=== PATIENT | male | born 1975 | race Caucasian/White ===

== ENCOUNTER 2017-06-17 09:44 | Day surgery (SDC) | payer OTHER ==
[~2017-06-17] VITALS: Ht 188 cm; Wt 129.6 kg
[2017-06-17 11:41] VITALS: BP 141/91; PULSE 78; TEMP 98
[2017-06-17] MEDS ORDERED: BUSPAR5 MG PO (11:45)
[2017-06-17] MEDS ORDERED: LEXAPRO20 MG PO (11:46)
[2017-06-17] MEDS ORDERED: XANAX .25M0.25 MG/TA PO (11:49)
[2017-06-17] MEDS ORDERED: NORCO 325 MG-7.1 TAB PO (13:51)
[2017-06-17 14:35] VITALS: BP 99/62; PULSE 83; TEMP 98.2
[2017-06-17 14:50] VITALS: BP 128/97; PULSE 84
[2017-06-17 15:05] VITALS: BP 104/63; PULSE 86
[2017-06-17 15:20] VITALS: BP 108/57; PULSE 77
[2017-06-17 15:35] VITALS: BP 107/58; PULSE 78
== END 2017-06-17 15:45 | disposition home or self-care (01) ==
LOC: SDCO 09:44
DX: K80.10 Calculus of gallbladder with chronic cholecystitis without obstruction (principal); I10 Essential (primary) hypertension; F32.9 Major depressive disorder, single episode, unspecified; F41.9 Anxiety disorder, unspecified; K21.9 Gastro-esophageal reflux disease without esophagitis; Z98.1 Arthrodesis status; F17.210 Nicotine dependence, cigarettes, uncomplicated
CPT/HCPCS: J0690; J1100; J1170; J2250; J2405; J2704; J3010; J7120

== ENCOUNTER 2024-03-04 10:33 | Inpatient (IN) | payer SELFPAY ==
[~2024-03-04] VITALS: Ht 188 cm; Wt 111.3 kg
[~2024-03-04 10:33] MED LIST: ASPIRIN 32325 MG/TAB PO; BUSPAR10 MG PO; BUSPAR5 MG PO; CYMBALTA 60MG60 MG PO; FLEXERIL 1010 MG/TAB PO; KLONOPIN 1MG1 MG PO; LEXAPRO20 MG PO; MINIPRESS2 MG PO; MIRALAX PA17 GM/Dose NG; NEURONTIN400 MG/CAP PO; NORCO 325 MG-7.1 TAB PO; PLAVIX 75MG TAB75 MG PO; ROXICODONE 55 MG/TAB PO; SENNA-S 50 MG-81 TAB PO; TYLENOL 500MG500 MG PO; ULTRAM 50MG TAB50 MG PO; XANAX .25M0.25 MG/TA PO
[2024-03-04 10:59] VITALS: BP 151/97; PULSE 78; TEMP 97.7
[2024-03-04] MEDS ORDERED: Polyethylene Glycol 3350 17 GM PDS PO PRN (11:00)
[2024-03-04] MEDS ORDERED: oxyCODONE 5 MG TAB PO PRN ×2 (11:00→12:00)
[2024-03-04] MEDS ORDERED: Docusate Sodium 100 MG CAP PO PRN (11:00)
[2024-03-04] MEDS ORDERED: Acetaminophen 325 MG TAB PO PRN (11:00)
[2024-03-04] MEDS ORDERED: Naloxone 0.4 MG/ML VIAL IV PRN ×2 (11:00→16:30)
[2024-03-04] MEDS ORDERED: Sennosides/Docusate 8.6-50 MG TAB PO PRN (11:00)
--- NOTE | 2024-03-04 11:11 | NUR ---
PT ARRIVED TO UNIT VIA STRETCHER, ABLE TO PIVOT TRANSFER WITH MINIMAL SBA. REPORTS PAIN 9/10 IN NECK, GIVEN PAIN MED WHOLE IN APPLESAUCE WITHOUT DIFFICULTY. PT ALERT, VERBAL, COOPERATIVE. PT IN BED, HOB ELEVATED, CALL LT IN LAP. OT AT BEDSIDE
[2024-03-04] MEDS ORDERED: clonazePAM 1 MG TAB PO PRN (12:00)
[2024-03-04] MEDS ORDERED: Acetaminophen 500 MG TAB PO SCH (12:00)
[2024-03-04] MEDS ORDERED: oxyCODONE 5 MG TAB PO ONE (12:15)
--- NOTE | 2024-03-04 12:50 | NUR ---
PT ATE 80 PERCENT OF LUNCH, FED BY STAFF. NO CHOKING NOTED BUT PT C/O DIFFICULTY SWALLOWING DRY FOODS.
[2024-03-04] MEDS ORDERED: Gabapentin 300 MG CAP PO SCH (14:00)
[2024-03-04] MEDS ORDERED: Cyclobenzaprine 10 MG TAB PO SCH (14:00)
[2024-03-04] MEDS ORDERED: busPIRone 5 MG TAB PO SCH (14:00)
--- NOTE | 2024-03-04 14:42 | NUR ---
PT WORKED WITH PT AND OT, COOPERATIVE. GIVEN SCHEDULED MEDICATION, SWALLOWS WITH PUDDING WITHOUT COUGHING, REPORTS TOOK PILLS WITH LIQUID AT PREVIOUS HOSPITAL. SPEECH CONSULT PLANNED FOR 03/05. PT DENIES NEEDS, S.O. AT BEDSIDE.
--- NOTE | 2024-03-04 16:05 | NUR ---
glass processing worker and Student, Tanya, met with patient to discuss discharge planning. Patient lives in [place] with his , Nuha, P# [phone]. PCP is Dr. Donaldson, Pharmacy is [facility]. Patient does not currently have insurance. Patient reports no issues with affording medications at this time. No DPOA-HC but would be interested in completing one. No DME at this time. Patient reported being independent with ADLS prior to hospitalization. No stairs in patient's home but approximately three steps into the home. Patient may not be able to drive at the time of discharge and reports his is able to transport him to and from appointments. Patient would like to return home at time of discharge. SW spoke with patient's nurse whom reported patient's received the financial assistance application when she was here and took it home to assist patient with completing the form. DIscharge plan: Home
[2024-03-04 17:00] VITALS: BP 112/76; PULSE 93; TEMP 97.5
[2024-03-04 18:30] VITALS: BP_SYST 112
[2024-03-04 19:00] VITALS: BP_SYST 112
--- NOTE | 2024-03-04 19:00 | NUR ---
RECEIVED CHANGE OF SHIFT REPORT FROM DAY SHIFT NURSE. PATIENT RESTING IN BED, NO NEEDS REPORTED AT THIS TIME.
[2024-03-04] MEDS ORDERED: Sennosides/Docusate 8.6-50 MG TAB PO SCH (21:00)
[2024-03-04] MEDS ORDERED: Prazosin 1 MG CAP PO SCH (21:00)
--- NOTE | 2024-03-05 01:40 | NUR ---
PATIENT RESTING WITH EYES CLOSED IN BED, BREATHING EVEN/NONLABORED. DOES NOT WAKE DURING NURSE ROUNDING AT THIS TIME. EXIT ALARM ON.
[2024-03-05 05:41] VITALS: BP 107/75; PULSE 85; TEMP 97.4
--- NOTE | 2024-03-05 06:01 | NUR ---
Patient complains of neck pain, 05/01, see MAR for pain medications given. Resting in bed, exit alarm on.
--- NOTE | 2024-03-05 06:34 | NUR ---
Change of shift report given to day shift nurseKevan.
[2024-03-05 06:40] VITALS: BP_SYST 107
--- NOTE | 2024-03-05 08:10 | NUR ---
Pt. sitting up in bed. Pt. is A&OX3, assessment complete. Pt. reports pain at a 7 on pain scale, giving additional dose of oxycodone at this time per orders. Pt. denies further needs, call light within reach.
[2024-03-05] MEDS ORDERED: Clopidogrel 75 MG TAB PO SCH (09:00)
[2024-03-05] MEDS ORDERED: Polyethylene Glycol 3350 17 GM PDS PO SCH (09:00)
[2024-03-05] MEDS ORDERED: DULoxetine 60 MG CAP PO SCH (09:00)
[2024-03-05] MEDS ORDERED: Aspirin 325 MG TAB PO SCH (09:00)
--- NOTE | 2024-03-05 09:26 | NUR ---
Initial visit attempt; Patient out of room, Mail Processor left card offering Spiritual Care and God's blessings along with an explanation of what all is involved in Spiritual Care.
[2024-03-05] MEDS ORDERED: Gabapentin 400 MG CAP PO SCH (14:00)
--- NOTE | 2024-03-05 14:10 | NUR ---
Microbiology Technician and student, Tanya met with patient to follow up on DPOA-HC. Patient stated he would prefer to wait until his , Nuha visits this weekend. SW left the paperwork and will continue to follow up.
[2024-03-05 17:03] VITALS: BP 109/76; PULSE 79; TEMP 98.1
[2024-03-05 18:19] VITALS: BP_SYST 109
--- NOTE | 2024-03-05 18:54 | NUR ---
RECEIVED CHANGE OF SHIFT REPORT FROM DAY SHIFT NURSE.
--- NOTE | 2024-03-05 20:00 | NUR ---
DENIES CHEST PAIN/SHORTNESS OF BREATHE, NAUSEA AT THIS TIME. OBSERVED DECREASED RANGE OF MOTION AND STRENGTH TO RIGHT ARM AND DECREASED ROM TO LEFT SHOULDER AND WEAKNESS TO LEFT ARM. PATIENT RESTING IN BED AT THIS TIME, BREATHING EVEN AND NONLABORED. NO REPORTS OF DISCOMFORT OR NEEDS AT THIS TIME. EXIT ALARM ON, CALL LIGHT IN PATIENT'S REACH.
[2024-03-05] MEDS ORDERED: clonazePAM 1 MG TAB PO SCH (21:00)
--- NOTE | 2024-03-05 23:04 | NUR ---
PATIENT REPORTED THAT IF HE IS SLEEPING WHEN MIDNIGHT DOSE OF TYLENOL IS DUE, PATIENT DOES NOT WANT TO BE WAKENED FOR THAT MEDICATION.
--- NOTE | 2024-03-06 05:37 | NUR ---
Denies any other needs after administration of scheduled Tylenol. Verbalized that he wants to wait to take Oxycodone with rest of morning scheduled medications at this time. Reminded patient to letting nursing know if he changes his mind and wants narcotic sooner that 0900. Exit alarm on, call light in reach.
[2024-03-06 05:58] VITALS: BP 110/76; PULSE 79; TEMP 97.6
[2024-03-06 06:08] VITALS: BP_SYST 110
--- NOTE | 2024-03-06 07:17 | NUR ---
Change of shift report given to day shift nurse.
--- NOTE | 2024-03-06 09:17 | NUR ---
PATIENT ALERT AND ORIENTED X4. PATIENT REPORTS PAIN TO HIS NECK. RATING IT AT A 7/10. PATIENT IS WEARING ASPEN COLLAR AT ALL TIMES. PATIENT HAS RIGHT ARM DRESSING C/D/I AND IS UNABLE TO MOVE BOTH ARMS. PATIENT RESTING IN BED WATCHING TV. ON ROOM AIR.SHIFT ASSESSMENT COMPLETED. CALL LIGHT WITHIN REACH. TOUCH PAD CALL LIGHT IN PLACE ASWELL. BED AT LOWEST POSITION.BED ALARM ON.
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
[2024-03-06 17:01] VITALS: BP 115/82; PULSE 67; TEMP 98.1
[2024-03-06 17:23] VITALS: BP_SYST 115
--- NOTE | 2024-03-06 18:40 | NUR ---
RECEIVED CHANGE OF SHIFT REPORT FROM DAY SHIFT NURSE. PATIENT RESTING IN BED, EXIT ALARM ON, CALL LIGHT IN REACH.
--- NOTE | 2024-03-06 20:00 | NUR ---
PATIENT CONTINUES WITH DECREASED STRENGTH TO BUE WITH RIGHT WORSE THAN LEFT, ABLE TO WIGGLE THE FINGERS OF BOTH HAND WITH STAFF CONTINUING TO ENCOURAGE PATIENT TO PERFORM WIGGLING OF FINGER TO HELP WITH SWELLING, HAVING OBSERVED THAT SWELLING TO RIGHT HAND FINGERS ARE LESS COMPARED TO YESTERDAY'S OBSERVATION BY NURSING. STORE ASSOCIATE TO FINGERS OF BOTH HANDS <3 SEC WITH SKIN WARM AND DRY WITH NORMAL SKILL COLORING. PATIENT KEEPING BUE UP ON PILLOWS INSTRUCTED AND FOR COMFORT. EXIT ALARM ON WHILE RESTING IN BED WITH SENSITIVE TOUCH CALL LIGHT WITHIN PATIENT'S REACH. PATIENT DENIES ANY NEEDS AT THIS TIME.
--- NOTE | 2024-03-06 21:00 | NUR ---
PATIENT REQUESTED TO NOT BE DISTURBED IF ASLEEP FOR MIDNIGHT TYLENOL DOSE.
--- NOTE | 2024-03-07 01:27 | NUR ---
Requested and given pain medication for complaint of 8 neck pain, see MAR.
[2024-03-07 06:00] VITALS: BP 113/79; PULSE 83; TEMP 97.6
--- NOTE | 2024-03-07 06:48 | NUR ---
Change of shift report given to day shift nurseJulio César. Patient resting with eyes closed with even/nonlabored breathing observed. Patient did not wake when nursing entered room during report. Exit alarm on, soft touch pad for call light in patient's reach.
[2024-03-07 06:49] VITALS: BP_SYST 113
--- NOTE | 2024-03-07 08:33 | NUR ---
PT RESTING IN BED, ALERT AND ORIENTEDX4. RATES PAIN 8/10 IN THE RIGHT ARM AND NECK. GAVE PAIN PILL. PT IS ABLE TO MOVE FINGERS ON BOTH EXTREMITIES. NOT ABLE TO MOVE RIGHT ARM. ABLE TO SAND CUTTING MACHINE OPERATOR LEFT ARM A LITTLE. NO FINE MOTOR SKILLS. STARTING FEEDING PT. PCT FINISHED FEEDING PT. NO OTHER COMPLAINTS AT THIS TIME. CALL LIGHT WITHIN REACH.
--- NOTE | 2024-03-07 09:16 | NUR ---
PT HAS BLOOD ALL OVER THE FRONT OF BRIEF COMING FROM [facility]. CALLED DR SMITH TO LET HIM KNOW. GOT ORDERS FOR UA AND BLADDER SCAN.
--- NOTE | 2024-03-07 09:23 | NUR ---
BLADDER SCANNED AT 0900.0 ML IN BLADDER
[2024-03-07 15:01] LABS: COLLECTION METHOD CLEAN CATCH
[2024-03-07 16:05] LABS: PH 5.5 (5.0-8.5); URINE APPEARANCE Clear (CLEAR/HAZY); URINE BLOOD NEGATIVE (NEGATIVE); URINE COLOR YELLOW (YELLOW); URINE GLUCOSE NEGATIVE (NEGATIVE); URINE KETONE NEGATIVE (NEGATIVE); URINE NITRATE NEGATIVE (NEGATIVE); URINE PROTEIN(semi-quant) NEGATIVE (NEGATIVE); URINE UROBILINOGEN 0.2 E.U/dL (0.2-1.0)
[2024-03-07 16:59] VITALS: BP 127/80; PULSE 80; TEMP 98.2
[2024-03-07 18:59] VITALS: BP_SYST 127
--- NOTE | 2024-03-07 18:59 | NUR ---
RECEIVED CHANGE OF SHIFT REPORT FROM DAY SHIFT NURSE. PATIENT RESTING IN BED, EXIT ALARM ON, SENSITIVE TOUCH CALL LIGHT PAD NEXT TO PATIENT'S LEFT HAND ON HIS CHEST. PATIENT DENIES ANY NEEDS OR CONCERNS AT THIS TIME.
--- NOTE | 2024-03-07 19:25 | NUR ---
Informed oncall provider of UA results, orders given to PO Keflex 500 mg BID.
[2024-03-07] MEDS ORDERED: Cephalexin 500 MG CAP PO SCH (19:30)
--- NOTE | 2024-03-07 19:48 | NUR ---
PATIENT SET OFF BED EXIT ALARM WHILE GETTING UP TO GO TO THE BATHROOM. PATIENT BACK TO BED WITH SLIGHT LEFT LEG DRAG WITH AMBULATION. DENIES CHEST PAIN, SHORTNESS OF BREATH, NAUSEA AT THIS TIME. DENIES ANY PROBLEMS WITH VOIDING OR URGENCY AT THIS TIME. EXIT ALARM ON, PATIENT REMINDED TO USE CALL LIGHT BEFORE GETTING UP TO USE BATHROOM WITH PATIENT VERBALIZING "YES". CALL LIGHT PLACED NEXT TO PATIENT BY PATIENT.
--- NOTE | 2024-03-07 20:35 | NUR ---
DECREASED MOVEMENT OF RIGHT ARM DUE TO SPLINT [place] DRESSING BUT ABLE TO WIGGLE RIGHT HAND FINGERS WITH NO PROBLEMS. OBSERVED BRACE TO LEFT WRIST FOR SUPPORT WITH PATIENT ABLE TO WIGGLE LEFT HAND FINGERS ON COMMAND WITH REPORT EQUAL SENSATION TO TOUCH. 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 OBSERVED BLE STRENGTH EQUAL TO LEGS WITH PATIENT REPORTING THAT HIS GAIT IS NOT STEADY THE DAY PROGRESS AND WHEN HE IS TIRED. DENIES CHEST PAIN/SHORTNESS OF BREATHE/NAUSEA AT THIS TIME. DENIES PROBLEMS WITH URINATION. REQUESTING PAIN MEDICATION WHEN NEXT AVAILABLE. PATIENT RESTING IN BED WITH EXIT ALARM ON, TOUCH PAD FOR CALL LIGHT ON CHEST NEXT TO LEFT HAND.
--- NOTE | 2024-03-07 20:59 | NUR ---
See MAR for pain medication given at this time as requested by patient. Patient denies any further needs/complaints at this time.
--- NOTE | 2024-03-07 22:36 | NUR ---
ONCALL PROVIDER ORDER GIVEN TO CULTURE URINE IF STILL AVAILABLE IN LAB, CONTACTED LAB AND CONFIRMED SPECIMEN IS STILL AVAILABLE FOR CULTURE, ORDER ENTERED BY CRITICAL CARE CNS.
[2024-03-08 06:05] VITALS: BP 108/74; PULSE 79; TEMP 97.3
[2024-03-08 07:00] VITALS: BP_SYST 108
--- NOTE | 2024-03-08 07:01 | NUR ---
Change of shift report given to day shift nurseMukund. Patient resting in bed, exit alarm on, touch pad call light next to left hand elevated on pillow. Patient denies any needs at this time.
--- NOTE | 2024-03-08 09:55 | NUR ---
SW met with patient to follow up on discharge planning. Patient states he is not aware of Financial Assist paperwork being completed. He still plans to return home at discharge. SW called R1 and spoke with Farooq who states she will meet with patient today to complete financial assist paperwork. Crane Man Laura informed this SW that [facility] completed Medicaid application prior to patient's admission to this hospital. Discharge plan: Home
--- NOTE | 2024-03-08 14:52 | NUR ---
Admission QIM scores were reviewed by the team. Code of 1 chosen for eating was determined by team discussion to be the most usual performance before interventions for this patient during the assessment period. Code of 1 chosen for toileting hygiene was determined by team discussion to be the most usual performance for this patient during the discharge assessment period. Code of 3 chosen for toilet transfers was determined by team discussion to be the most usual performance for this patient during the discharge assessment period. Code of 3 chosen for sit to lying was determined by team discussion to be the most usual performance before interventions for this patient during the assessment period. Code of 3 chosen for lying to sitting side of bed was determined by team discussion to be the most usual performance before interventions for this patient during the assessment period. Code of 3 chosen for chair to bed was determined by team discussion to be the most usual performance for this patient during the discharge assessment period. Code of 3 chosen for walking 10 feet was determined by team discussion to be the most usual performance for this patient during the discharge assessment period. Code of 88 chosen for walking 150 feet was determined by team discussion to be the most usual performance before interventions for this patient during the assessment period.--Laura Poon,
[2024-03-08 17:26] VITALS: BP 131/84; PULSE 84; TEMP 97.6
[2024-03-08 19:20] VITALS: BP_SYST 131
[2024-03-08 19:50] VITALS: BP 125/84; PULSE 81; TEMP 98.6
[2024-03-09 05:26] VITALS: BP 118/81; PULSE 84; TEMP 97.8
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
[2024-03-09 07:00] VITALS: BP_SYST 118
--- NOTE | 2024-03-09 07:45 | NUR ---
Pt. sitting up in bed. Pt. is a&OX3, assessment complete. Pt. reports pain at a 4 on pain scale at this time. Pt. assisted with meds. Pt. denies further needs, call light within reach.
--- NOTE | 2024-03-09 14:03 | NUR ---
Initial visit; Patient very nice, stated that he was happy to have Airline Reservation Agent visit and said he is doing "ok". He and Airline Reservation Agent spoke of his cousin with whom he is close and she was a school friend of our daughter. Alexander said he would let the nurse know if he wanted to visit again.
[2024-03-09 17:15] VITALS: BP 149/97; PULSE 82; TEMP 97.4
[2024-03-09 19:00] VITALS: BP_SYST 149
--- NOTE | 2024-03-09 23:09 | NUR ---
NURSING SHIFT ASSESSMENT COMPLETED. THE PATIENT WAS ALERT AND ORIENTED. THE PLAN OF CARE AND PAIN MANAGEMENT WERE REVIEWED. QUESTIONS ANSWERED. THE PATIENT REPORTED HIS NECK PAIN 8/10. TYLENOL TO BE PROVIDED IT IS NOT TIME FOR HIS NEXT DOSE OF OXYCODONE. THE PATIENT WAS ASSISTED WITH THE URINAL AND HE VOIDED WITHOUT DIFFICULTY. C-COLLAR ON PER ORDERS. CALL LIGHT AND PERSONAL BELONGINGS TO INCLUDE THE PAN[place]KE CALL LIGHT ALL WITHIN REACH. THE BED ALARM IS ON AND THE BED IS IN THE LOW POSITION.
--- NOTE | 2024-03-10 05:44 | NUR ---
THE PATIENT RESTED WELL OVER NIGHT. PAIN WAS CONTROLLED WITH TYLENOL AND OXYCODONE.
[2024-03-10 06:07] VITALS: BP 100/69; PULSE 73; TEMP 97.4
[2024-03-10 07:18] VITALS: BP_SYST 100
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
[2024-03-10] MEDS ORDERED: Baclofen 10 MG TAB PO SCH (10:30)
[2024-03-10] MEDS ORDERED: Lidocaine 4% Topical Patch TP SCH (13:00)
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
[2024-03-10 17:51] VITALS: BP 122/88; PULSE 93; TEMP 98
[2024-03-10 19:00] VITALS: BP_SYST 122
--- NOTE | 2024-03-10 19:00 | NUR ---
Received change of shift report from day shift nurse. Patient resting in bed, exit alarm on, call light touch pad next to left hand. Patient denies any needs or concerns at this time.
--- NOTE | 2024-03-10 23:29 | NUR ---
Patient up to bathroom, with x1 CGA assist, patient awakened from sleeping, gait awkward to and from bed to bathroom. Bed exit alarm when back in bed, call light touch pad next to left hand. Chacorta upper extremities elevated on pillows. Denies any needs or concerns at this time. Cat[place] collar in place, to stay on continues as per DO. Splint simon drsg in place to RUE with wrist brace to LUE as per DO for comfort/support.
[2024-03-11 05:58] VITALS: BP 116/77; PULSE 79; TEMP 97.9
[2024-03-11 07:00] VITALS: BP_SYST 116
--- NOTE | 2024-03-11 07:29 | NUR ---
Change of shift report given to day shift nurseAnne Marie.
--- NOTE | 2024-03-11 09:24 | NUR ---
PT RESTING IN BED WAITING FOR THERAPY. TOOK PILLS WHOLE WITH ASSIST. DRANK ONE CUP OF OJ. REFUSED REST OF BREAKFAST. DENIES NEEDS. SLEEPY THIS AM.
[2024-03-11] MEDS ORDERED: Baclofen 10 MG TAB PO SCH (14:00)
[2024-03-11 17:51] VITALS: BP 142/94; PULSE 84; TEMP 97.5
[2024-03-11 19:37] VITALS: BP_SYST 142
--- NOTE | 2024-03-11 19:38 | NUR ---
RECEIVED CHANGE OF SHIFT REPORT FROM DAY SHIFT NURSE. PATIENT RESTING IN BED, EYES CLOSED, DOES NOT WAKE DURING NURSE ROUNDS. OBSERVED BREATHING EVEN/NONLABORED. EXIT ALARM ON, CALL LIGHT TOUCH PAD NEAR L HAND. BOTH BUE ELEVATED FOR COMFORT. ASPEN COLLAR IN PLACE, RUE SPLINT/[place] DRSG CDI.
--- NOTE | 2024-03-11 21:20 | NUR ---
Decreased ROM/strength to right wrist due to splint simon dressing in place, encouraged patient to perform chacorta finger exercises often when awake with patient voicing that he has been observed swelling to right hand fingers decreased from last evenings assessment. Left wrist brace in place for support. Continues to have partial ROM to left shoulder, is able to pull up waist band with left hand partially, not able to move RUE spontaneously. Right hand cylinder machine operator pulp drier very weakn compared to left hand cylinder machine operator pulp drier. Chacorta leg strengths equal. Patient states he still fatigues with activity. Denies chest pain/shortness of breathe/nausea at this time. Reported passing x2 bowel movements with flatus with no problems. Reports no problems with voiding.
--- NOTE | 2024-03-12 02:48 | NUR ---
Patient continues to rest with eyes closed/breathing nonlabored and even. Exit alarm on with call light touch pad next to left hand thumb.
[2024-03-12 05:27] VITALS: BP 125/80; PULSE 82; TEMP 97.4
[2024-03-12 07:00] VITALS: BP_SYST 125
--- NOTE | 2024-03-12 07:00 | NUR ---
PT RESTING IN BED. PT IS ON RA. PT IS A HIGH FALL RISK. PT HAS BEDALRM ACTIVE. FALL PRECAUTIONS IN PLACE. PT HAS CALL LIGHT AND INSTRUCTED TO CALL WTIH ALL NEEDS.
--- NOTE | 2024-03-12 07:20 | NUR ---
Change of shift report given to day shift nurse
[2024-03-12] MEDS ORDERED: Gabapentin 300 MG CAP PO SCH (14:00)
--- NOTE | 2024-03-12 14:26 | NUR ---
rice field worker met with pt to assess for any needs and check-in. Pt had no concerns, but wondered about the family meeting and what this entails. SW provided additional information. Pt would like his to come and staff might have to call his mother, as she babysits. SW advised she will pass this along to main SW. Pt had no further concerns. Discharge Plan: re-eval
[2024-03-12 17:04] VITALS: BP 123/86; PULSE 78; TEMP 97.5
[2024-03-12 19:30] VITALS: BP_SYST 123
--- NOTE | 2024-03-12 21:50 | NUR ---
patient lying in bed, alert and oriented x4. denies chest pain and shortness of breath. aspen collar in place, brace to right radial and small brace to left arm noted. lidocaines patch removed, voltaren gel placed on left arm, shoulder, and elbow for pain relief. nutrition provided with assist. pain rated 8/10 in left arm/shoulder, per request dante given, upon reassement pt resting with eyes closed. pt has no further needs, questions or concerns at this time. fall precautions in place, call light within reach. will continue to monitor.
[2024-03-13 05:31] VITALS: BP 112/80; PULSE 81; TEMP 98.7
[2024-03-13 07:00] VITALS: BP_SYST 112
[2024-03-13 16:32] VITALS: BP 121/83; PULSE 85; TEMP 97.6
[2024-03-13 21:35] VITALS: BP_SYST 121
--- NOTE | 2024-03-13 21:43 | NUR ---
patient lying in bed, alert and oriented x4. denies chest pain and shortness of breath. reports pain in left arm and shoulder rated 7/10, repositioned. aspen splint remains on neck, brace on left wrist and gauze with simon wrap brace on right arm, cdi. pt has no further needs, questions, or concerns at this time. fall precautions in place, call light within reach, will continue to monitor.
[2024-03-14 05:33] VITALS: BP 126/81; PULSE 71; TEMP 98.7
[2024-03-14 07:00] VITALS: BP_SYST 126
[2024-03-14 16:29] VITALS: BP 129/84; PULSE 82; TEMP 98.1
[2024-03-14 19:00] VITALS: BP_SYST 129
--- NOTE | 2024-03-14 21:00 | NUR ---
UPON SHIFT ASSESSMENT, LISETTE WAS IN BED AWAKE AND AXO X4. COLOR AND SENSATION GOOD IN DISTAL EXTREMETIES. NECK SURGICAL SITE CDI. LEFT ARM CAST/DRESSING ALSO CDI. ASPEN COLLAR IN PLACE AND RT ARM WRIST WRAP PRESENT. LUNG SOUNDS CLEAR. PATIENT C/O 9/10 SHOULDER PAIN AND REQUESTING ROXICODONE WITH MED PASS. AMBULTED TO BATHROOM AND HAD LRG BROWN SOLID STOOL. VS ARE WNL.BED ALARM ON, CALL LIGHT WITHIN REACH.
[2024-03-15 05:22] VITALS: BP 127/85; PULSE 79; TEMP 97.6
[2024-03-15 06:56] VITALS: BP_SYST 127
--- NOTE | 2024-03-15 08:26 | NUR ---
PT RESTING IN BED, ALERT AND ORIENTEDX4. RATES PAIN 8/10 IN THE RIGHT ARM AND KNECK. ASSESSED AND GAVE MORNING MEDS. TOOK PT TO THE BATHROOM. NO OTHER COMPLAINTS AT THIS TIME. CALL LIGHT WITHIN REACH.
--- NOTE | 2024-03-15 15:26 | NUR ---
SW attempted to meet with patient to check in after weekend. Patient sleeping soundly, no family present. SW spoke with RN who reports no issues at this time. SW will meet with patient at a later time. Discharge plan: re-eval
[2024-03-15 17:03] VITALS: BP 135/87; PULSE 88; TEMP 98.4
[2024-03-15 19:23] VITALS: BP_SYST 135
--- NOTE | 2024-03-15 19:24 | NUR ---
RECEIVED CHANGE OF SHIFT REPORT FROM DAY SHIFT NURSE. PATIENT RESTING IN BED WITH EYES CLOSED, EVEN AND NONLABORED BREATHING OBSERVED. DOES NOT WAKE DURING NURSE ROUNDING AT THIS TIME. EXIT ALARM ON, CALL LIGHT IN REACH.
--- NOTE | 2024-03-15 20:00 | NUR ---
DECREASED ROM TO RUE RELATED TO SPLINT [place] DRSG AND WEAKNESS. DECREASED ROM TO RIGHT SHOULDER RELATED TO WEAKNESS. PATIENT REPORTS DECREASED SENSATION TO RUE WITH WEAK HAND PRESS OPERATOR HEAVY DUTY MORE THAT LEFT. PATIENT WITH SLIGHT UNSTEADY GAIT WHEN AMBULATED TO BATHROOM AFTER WAKING FROM SLEEPING THIS EVENING. SPEAKS CLEARLY AND APPROPRIATELY. DENIES CHEST PAIN/SHORTNESS OF BREATHE/ NAUSEA AT THIS TIME. EXIT ALARM ON WHILE RESTING IN BED, CALL LIGHT TOUCH PAD PLACED NEXT TO LEFT HAND. ASPEN COLLAR IN PLACE PER D.O. WITH HOB ELEVATED FOR BREATHING COMFORT. CONTINUES ON ROOM AIR. SWALLOWS LIQUIDS WITH NO REPORTED PROBLEMS.
[2024-03-16 05:06] VITALS: BP 107/75; PULSE 89; TEMP 96.2
[2024-03-16 06:59] VITALS: BP_SYST 107
--- NOTE | 2024-03-16 07:08 | NUR ---
CHANGE OF SHIFT REPORT GIVEN TO DAY SHIFT NURSEGINA.
--- NOTE | 2024-03-16 08:25 | NUR ---
PT RESTING IN BED, ALERT AND ORIENTEDX4. RATES PAIN 8/10 IN THE LEFT SHOULDER AND REQUESTED PAIN PILL. ASSESSED AND GAVE MORNING MEDS. PUT LIDCAINE PATCH ON LEFT SHOULDER. REPOSISTIONED IN BED. NO OTHER COMPLAINTS AT THIS TIME CALL LIGHT WITHIN REACH.
[2024-03-16] MEDS ORDERED: predniSONE 10 MG TAB PO SCH (12:09)
[2024-03-16] MEDS ORDERED: Gabapentin 400 MG CAP PO SCH (14:00)
[2024-03-16 17:35] VITALS: BP 129/84; PULSE 97; TEMP 98.4
--- NOTE | 2024-03-16 18:46 | NUR ---
RECEIVED CHANGE OF SHIFT REPORT FROM DAY SHIFT NURSE.
[2024-03-16 19:42] VITALS: BP_SYST 129
[2024-03-17 05:07] VITALS: BP 106/73; PULSE 86; TEMP 97.9
--- NOTE | 2024-03-17 06:57 | NUR ---
CHANGE OF SHIFT REPORT GIVEN TO DAY SHIFT NURSEPARVEEN.
[2024-03-17 07:24] VITALS: BP_SYST 106
--- NOTE | 2024-03-17 11:01 | NUR ---
Pt resting in bed with 8/10 pain in right arm and shoulder. Lidocaine patch applied and pain medication provided. Pt 1 assist to bathroom with walker, pt needs assistance feeding, pt states bm yesterday and refused scheduled stool softeners. [place] collar in place, pt a/o x4, no needs at this time, will continue to monitor.
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
[2024-03-17 19:00] VITALS: BP_SYST 109
[2024-03-17 19:04] VITALS: BP 109/77; PULSE 99; TEMP 97.8
--- NOTE | 2024-03-17 19:50 | NUR ---
RECEIVED CHANGE OF SHIFT REPORT FROM DAY SHIFT NURSE. PATIENT RESTING IN BED, EXIT ALARM ON, CALL LIGHT TOUCH PAD NEXT TO LEFT HAND. NO NEEDS REPORTED AT TIME OF REPORT.
--- NOTE | 2024-03-17 20:00 | NUR ---
DECREASED RUE DUE TO WEAKNESS WITH EQUAL SENSATION REPORTED TO TACTILE TOUCH. SPLINT [place] DRESSING CONTINUES TO RUE, PATIENT ENCOURAGED TO PERFORM FREQUENTLY WIGGLING OF FINGERS OF BOTH HANDS FOR STRENGTH AND SWELLING. BRACE TO LEFT WRIST IN PLACE AND INTACT. PATIENT DENIES CHEST PAIN/SHORTNESS OF AIR AND NAUSEA AT THIS TIME. PATIENT REPORTS HAD PASSED STOOL EARLIER TODAY. PATIENT RESTING IN BED, EXIT ALARM ON, CALL LIGHT TOUCH PAD NEXT TO LEFT HAND FOR EASIER ACCESS TO PATIENT.
--- NOTE | 2024-03-17 22:19 | NUR ---
REQUESTED AND GIVEN OXYCODONE FOR COMPLAINTS OF LEFT SHOULDER PAIN 05/01. NO OTHER NEEDS REPORTED AT THIS TIME.
[2024-03-18 06:00] VITALS: BP 127/89; PULSE 74; TEMP 97.4
[2024-03-18 06:38] VITALS: BP_SYST 127
--- NOTE | 2024-03-18 07:29 | NUR ---
CHANGE OF SHIFT REPORT GIVEN TO DAY SHIFT NURSEPARVEEN.
[2024-03-18] MEDS ORDERED: Triamcinolone 40 MG/ML 1 ML VIAL IJP ONE (09:15)
--- NOTE | 2024-03-18 09:58 | NUR ---
Pt resting in bed with pain 10/10 in left shoulder, pain medications provided per emar. Pt requesting steriod shot at this time. Tushar wrap to right arm and brace to left wrist clean and dry. [place] brace in place, 1 assist with walker to bathroom and walking the halls. Will continue to monitor.
[2024-03-18 17:13] VITALS: BP 131/72; PULSE 91; TEMP 98.5
[2024-03-18 19:00] VITALS: BP_SYST 131
--- NOTE | 2024-03-18 22:10 | NUR ---
Patient resting in bed. Assissted patient to bathroom and back to bed. Changed patients clothes. Rates pain at 8/10, prn pain meds given. Needs met. Assessment complete. Call light and persoanlitems in reach. Bed in low position and bed alarm on.
[2024-03-18 22:22] VITALS: BP 126/73; PULSE 70
[2024-03-19 05:38] VITALS: BP 136/82; PULSE 67; TEMP 97.4
[2024-03-19 07:10] VITALS: BP_SYST 136
--- NOTE | 2024-03-19 12:11 | NUR ---
Assessment complete. A/O x4. Medicated with Roxicodone this morning prior to physical therapy. Currently rates pain 0/10. Reports that injection to left shoulder yesterday has improved left shoulder pain-lidocaine patch placed. Unable to lift or hold RUE but is able to wiggle/move fingers- CMS WNL. Tushar splint to RUE, CDI. Left wrist splint removed by Dr. Figueroa earlier today. [place] brace to neck at all times. Fall precautions in place.
--- NOTE | 2024-03-19 13:00 | NUR ---
PCT assisted patient with meal. Roxicodone administered po c/o pain to left shoulder. Scheduled Tylenol also administered.
--- NOTE | 2024-03-19 15:09 | NUR ---
clothing worker met with pt to assess for any needs. He reports no concerns and wants to work on going home soon. SW advised they will have their team meeting Friday and have some better ideas. Discharge Plan: re-eval
[2024-03-19 16:30] VITALS: BP 130/95; PULSE 92; TEMP 97.6
--- NOTE | 2024-03-19 16:31 | NUR ---
Pt sitting up in chair. Reports pain 11/29. Denies needs at this time. Bedside report given to KEN Leal.
--- NOTE | 2024-03-19 16:34 | NUR ---
Received bedside report from KEN Porras. No PCT in room assisting Pt. Call light in reach and chair alarm on.
[2024-03-19 18:50] VITALS: BP_SYST 130
--- NOTE | 2024-03-19 22:05 | NUR ---
Patient resting in bed. Rates pain at 6/10, prn pain meds given. Assissted patient to bathroom and back to bed. Snack provided. Cleaned feet trying to get built up skin off, lotion applied. Assessment complete. Massage provided to left shoulder with voltaren gel. Call light and personal items in reach. Bed in low position and bed alarm on.
[2024-03-19 22:21] VITALS: BP 148/76; PULSE 66
[2024-03-20 05:50] VITALS: BP 138/77; PULSE 60; TEMP 97.5
[2024-03-20 07:16] VITALS: BP_SYST 138
--- NOTE | 2024-03-20 09:00 | NUR ---
Pt resting in bed with pain 6/10 in left shoulder. Lidocaine patch applied. [place] collar in place, right forearm simon wrap CDI, shuffeling gait to bathroom with SBA and gait belt. Bandaid replaced to abdomen from Lovenox injection site from 03/19. Site continues to bleed with pressure. Pt refused morning dose of Lovenox, plan to discuss with hospitalist team today. No needs at this time, will continue to monitor.
[2024-03-20 18:21] VITALS: BP 141/83; PULSE 109; TEMP 98.3
[2024-03-20 18:40] VITALS: BP_SYST 141
--- NOTE | 2024-03-20 19:05 | NUR ---
Patient resting in bed. Rates pain at 6/10, denies need for pain meds at this time and stated he would take some with his evening meds. Snack offered. Denies any needs at this time. Assessment complete. Call light and personal items in reach. Bed in low position.
[2024-03-21 05:54] VITALS: BP 133/79; PULSE 77; TEMP 97.1
[2024-03-21 06:40] VITALS: BP_SYST 133
--- NOTE | 2024-03-21 06:40 | NUR ---
Pt amy carrasco. Call light in reach.
--- NOTE | 2024-03-21 08:20 | NUR ---
Pt sitting up in bed. Assessment complete. Pt states pain 6/10 after oxycodone. Applied Lidocaine patch to shoulder. No further needs at this time. Call light in reach and bed alarm on.
[2024-03-21 17:49] VITALS: BP 114/79; PULSE 77; TEMP 98.5
[2024-03-21 19:16] VITALS: BP_SYST 114
--- NOTE | 2024-03-21 19:17 | NUR ---
RECEIVED CHANGE OF SHIFT REPORT FROM DAY SHIFT NURSE. PATIENT RESTING IN BED, EXIT ALARM ON, CALL LIGHT WITHIN PATIENT'S REACH.
--- NOTE | 2024-03-21 20:00 | NUR ---
PATIENT WITH CONTINUED WEAKNESS TO RUE, ABLE TO WIGGLE RIGHT HAND FINGERS WITH STAFF ENCOURAGED PATIENT TO CONTINUE TO PERFORM RIGHT HAND FINGER WIGGLES TO HELP WITH SWELLING AND ROM. [place] DRESSING TO RIGHT WRIST/FOREARM INTACT AND CLEAN AND ELEVATED ON X2 PILLOWS. PATIENT DENIES CHEST PAIN/SHORTNESS OF BREATHE AT THIS TIME. REQUESTING PAIN MEDS WHEN NEXT AVAILABLE, SEE MAR FOR MEDS GIVEN. EXIT ALARM ON WHILE IN BED WITH CALL LIGHT WITHIN LEFT HAND REACH. PATIENT DENIED ANY OTHER NEEDS AT THIS TIME.
[2024-03-22 05:50] VITALS: BP 134/85; PULSE 97; TEMP 97.4
[2024-03-22 07:00] VITALS: BP_SYST 134
--- NOTE | 2024-03-22 07:20 | NUR ---
CHANGE OF SHIFT REPORT GIVEN TO DAY SHIFT NURSELISA.
--- NOTE | 2024-03-22 08:30 | NUR ---
Pt. sitting up in bed. Pt. is A&OX3, assessment complete. [place] collar to neck. Pt. reports pain to lt. shoulder/arm at a 7. Lidocaine patch applied. Gave pain meds per order. Pt. denies further needs. OT assisting pt. with bath. Pt. denies further needs, call light within reach.
--- NOTE | 2024-03-22 12:24 | NUR ---
plate worker and SW Student met with patient to introduce herself and check in. Patient reports to be doing well. SW provided her contact information to call if he has any questions or concerns. SW explained she would continue to follow up with him.
[2024-03-22 16:30] VITALS: BP 129/88; PULSE 90; TEMP 98.3
[2024-03-22 19:18] VITALS: BP_SYST 129
--- NOTE | 2024-03-22 19:19 | NUR ---
RECEIVED CHANGE OF SHIFT REPORT FROM DAY SHIFT NURSE. PATIENT RESTING IN BED, EXIT ALARM ON, CALL LIGHT WITHIN PATIENT'S REACH.
--- NOTE | 2024-03-22 20:00 | NUR ---
RUE WEAKNESS CONTINUES WITH RIGHT WRIST BRACE IN PLACE. ASPEN COLLAR CONTINUES AND IN PLACE. LUE WITH CONTINUED DECREASED MOVEMENT. PATIENT DENIES CHEST PAIN/SHORTNESS OF BREATHE AND NAUSEA AT THIS TIME.
[2024-03-23 05:18] VITALS: BP 113/76; PULSE 80; TEMP 97.6
--- NOTE | 2024-03-23 06:56 | NUR ---
CHANGE OF SHIFT REPORT GIVEN TO DAY SHIFT NURSE, PIO
[2024-03-23 07:00] VITALS: BP_SYST 113
--- NOTE | 2024-03-23 10:33 | NUR ---
PT AWAKE AND RESTING IN BED UPON ENTERING ROOM. PT C/O DIZZINESS, LIGHTHEADEDNESS, AND SLIGHT NAUSEA DURING OT. VSS. PT REFUSED BREAKFAST BEFORE THERAPY. PT HAD 3 SPOONFULS OF PUDDING AND SX IMPROVED. PT NOW SLEEPING IN ROOM. DENIES OTHER PAIN. BED ALARM ON. CALL LIGHT W/IN REACH.
--- NOTE | 2024-03-23 16:21 | NUR ---
PT SX OF NAUSEA IMPROVED AFTER ZOFRAN DOSE. PT RATES PAIN /10. DENIES NAUSEA AT THIS TIME. DENIES ANY ADDITIONAL NEEDS AT THIS TIME. PT IS HOPEFUL TO EAT DINNER SOON.
[2024-03-23 17:52] VITALS: BP 126/99; PULSE 86; TEMP 97.5
[2024-03-23 19:00] VITALS: BP_SYST 126
[2024-03-24 05:24] VITALS: BP 111/79; PULSE 85; TEMP 97.3
[2024-03-24 06:50] VITALS: BP_SYST 111
--- NOTE | 2024-03-24 06:50 | NUR ---
PT SLEEPING IN BED. PT IS ON RA. PT HAS C-COLLAR ON. FALL PRECAUTIONS IN PLACE. BEDALARM ACTIVE AND CALL LIGHT WITHIN REACH.
--- NOTE | 2024-03-24 14:42 | NUR ---
emergency service worker and SW Student attended the IPR team conference to discuss patient s progress and potential discharge date. Patient has made improvement but the team would like to re-evaluate patient next week before establishing a potential discharge date. SHELTON explained patient would need to be set up with OP PT upon discharge at [facility] as patient does not have insurance and has an FAA that he can utilize at [facility] outpatient as it is under the same company. SHELTON and SHELTON Student met with patient to discuss the IPR team conference notes. SHELTON explained the team would like to re-evaluate him next week. Patient expressed understanding. SHELTON explained discharge plan was still home with OP PT at this time and that would be completed at the [facility] in [place]. Patient expressed understanding. No further questions or concerns at this time. SHELTON met with patient and provided a copy of the IPR team conference notes discussed earlier and reviewed his scores. No questions or concerns at this time.
[2024-03-24 18:33] VITALS: BP 114/82; PULSE 103; TEMP 98.6
[2024-03-24 19:00] VITALS: BP_SYST 114
--- NOTE | 2024-03-24 20:20 | NUR ---
Patient resting in bed. Rates pain at 8/10, prn pain meds given. Needs met. Lotion applied to BUE. Massage left shoulder/ arm with voltaren gel. Assessment complete. Call light and personal items in reach. Bed in low position.
[2024-03-24 20:32] VITALS: BP 116/66; PULSE 91
[2024-03-25 05:23] VITALS: BP 122/84; PULSE 85; TEMP 98.6
[2024-03-25 07:15] VITALS: BP_SYST 122
--- NOTE | 2024-03-25 11:44 | NUR ---
PT RESTING IN BED, ALERT AND ORIENTEDX4. RATED PAIN 7/10 IN THE KNECK. GAVE PAIN PILL. PAIN WAS 5/10 AFTER REASSESSMENT. ASSESSED AND GAVE MORNING MEDS. NO OTHER COMPLAINTS AT THIS TIME. CALL LIGHT WITHIN REACH.
[2024-03-25 18:50] VITALS: BP 120/84; PULSE 89; TEMP 98.3
[2024-03-25 19:13] VITALS: BP_SYST 120
--- NOTE | 2024-03-25 22:28 | NUR ---
PT ALERT AND ORIENTED LAYING IN BED WATCHING TV. SAYS HE IS FEELING OK TODAY. PAIN HAS BEEN UNDER CONTROL, HE IS MOD I IN HIS ROOM AND IS HAPPY ABOUT IT. ASSESSED AND MEDICATED PER EMAR. PAIN IS RATED 2/10 AT THIS TIME. NO FURTHER NEEDS EXPRESSED AT THIS TIME. CALL LIGHT WITHIN REACH.
[2024-03-26 06:00] VITALS: BP 124/87; PULSE 80; TEMP 98.7
[2024-03-26 06:30] VITALS: BP_SYST 124
--- NOTE | 2024-03-26 08:30 | NUR ---
PT LAYING IN BED UPON ENTERING. ASSESSMENT DONE, MEDS GIVEN. PT REFUSED MIRALAX. NO DRAINAGE NOTED TO ANTERIOR OR POSTERIOR NECK AND RIGHT ARM. C COLLAR IN PLACE. RIGHT ARM FLACCID. PT REPORTS 8/10 NECK PAIN AND GIVEN PRN OXYCODONE. PT EDUCATED THAT THERE IS NO ORDER FOR MOD 1 AND THAT BED ALARMS WILL BE STARTING AGAIN, PT VERBALIZED UNDERSTANDING. OT AT BEDSIDE UPON THIS NURSE LEAVING.
[2024-03-26 17:01] VITALS: BP 94/83; PULSE 97; TEMP 98.6
[2024-03-26 18:45] VITALS: BP_SYST 94
--- NOTE | 2024-03-26 19:06 | NUR ---
PT IN BED AND REPORTS LEFT SHOULDER PAIN. PT UNABLE TO GET PRN AT THIS TIME AND OKAY WITH WAITING TO SEE IF REPOSITIONING WILL IMPROVE PAIN. LEGS ELEVATED ON A PILLOW AND EACH ARM PLACED ON A PILLOW, BRACE TO RIGHT WRIST ON. PT DENIES NEEDS. BED IN LOWEST POSITION, CALL LIGHT IN REACH, BED ALARM ON
--- NOTE | 2024-03-26 21:30 | NUR ---
Patient resting in bed. Rates his pain at 8/10 in left shoulder, prn pain meds given. Finger and toenails clipped. Lotion applied to hands and feet for dry skin. Patient drank ensure. Denies any other needs. Assessment complete. Call light and personal items in reach. Bed in low position and bed alarm on.
[2024-03-26 21:57] VITALS: BP 120/80; PULSE 85
[2024-03-27 05:28] VITALS: BP 119/77; PULSE 79; TEMP 98
[2024-03-27 06:30] VITALS: BP_SYST 119
--- NOTE | 2024-03-27 09:30 | NUR ---
PT LAYING IN BED UPON ENTERING. PT INCONTINENT OF URINE AND STATES THAT HES UNSURE WHY. PT CLEANED AND CLOTHES CHANGED. PT AMBULATING TO CHAIR STANDBY ASSIST, GAIT STEADY. PT REPORTS NECK PAIN AND GIVEN PRN CEDRIC. ASPEN COLLAR IN PLACE. POSTERIOR AND ANTERIOR INCISIONS INTACT, GLUE LIFTING ON SITES. PER NIGHT RN DRAINAGE WAS NOTED TO RIGHT FOREARM. SCANT DRAINAGE AND ERYTHEMA NOTED TO ANTERIOR WRIST BY THIS RN, STERI STRIPS IN PLACE. PT DENIES PAIN ON FOREARM. LIDOCAINE PATCH PLACED TO LEFT UPPER ARM. RIGHT ARM FLACCID. PT DENIES NEEDS. CHAIR ALARM ON, CALL LIGHT IN REACH
--- NOTE | 2024-03-27 10:14 | NUR ---
DR SANTIAGO NOTIFIED OF DRAINAGE AND ERYTHEMA NOTED TO RIGHT WRIST. HOSPITALIST AT BEDSIDE AND NOTIFIED THIS NURSE TO KEEP RIGHT WRIST BRACE OFF AND KEEP SITES OPEN TO AIR AND ELEVATED ON PILLOW. PT IN CHAIR AND DENIES NEEDS AT THIS TIME.
[2024-03-27 16:37] VITALS: BP 106/72; PULSE 80; TEMP 98.1
[2024-03-27 19:17] VITALS: BP_SYST 106
--- NOTE | 2024-03-27 20:15 | NUR ---
PT A&O X4 LAYING IN BED. RATES PAIN TO LEFT SHOULDER 8/10, TOO EARLY FOR PRN PAIN MED, PT VOICED OK TO WAIT TILL NEXT ONE IS DUE & JUST DO HS VOLATERN GEL FOR NOW. RT ARM FLACCID & ELEVATED ON A PILLOW. STERI STRIPS TO RT WRIST ARE CDI, NO DRAINAGE/WARMTH NOTED, SOME REDNESS ON ANTERIOR SIDE. PT DENYING OTHER NEEDS. CALL LIGHT IN REACH
[2024-03-28 05:07] VITALS: BP 124/85; PULSE 93; TEMP 97.6
--- NOTE | 2024-03-28 05:19 | NUR ---
PT RESTING IN BED. AMBULATED TO RESTROOM WITH SBA. GAVE PRN OXYCODONE PER NOV FOR LEFT SHOULDER PAIN 03/31. PT DENYING FURTHER NEEDS. CALL LIGHT IN REACH & BED ALARM ON
[2024-03-28 07:00] VITALS: BP_SYST 124
--- NOTE | 2024-03-28 10:15 | NUR ---
PT LAYING IN BED UPON ENTERING. PT REPORTS NOT SLEEPING WELL LAST NIGHT. ASSESSMENT DONE, MEDS GIVEN PER ORDER. PT REPORTS 8/10 PAIN AND GIVEN PRN OXI. LIDOCAINE PATCH PLACED TO LEFT UPPER ARM. ASPEN COLLAR IN PLACE. SUTURED NOTED TO RIGHT WRIST, NO CHANGE FROM YESTERDAY. PT DENIES NEEDS. BED IN LOWEST POSITION, CALL LIGHT IN REACH, BED ALARM ON
[2024-03-28 16:47] VITALS: BP 123/80; PULSE 79; TEMP 98.6
[2024-03-28 18:30] VITALS: BP_SYST 123
--- NOTE | 2024-03-28 23:15 | NUR ---
Shift assessment completed- see documentation. Pt is alert and oriented. He reports 8/10 pain at this time. PM medications administers in addition to a PRN roxicodone as ordered. Neck brace remains in place. The flaccid right arm was repositioned with pillows for comfort. Pt denies any other needs at this time. Fall precautions in place and call light within reach.
[2024-03-29 05:03] VITALS: BP 107/74; PULSE 76; TEMP 98.1
[2024-03-29 06:45] VITALS: BP_SYST 107
--- NOTE | 2024-03-29 07:25 | NUR ---
Report received. Pt is sleeping comfortably in bed. Pt does not appear to be having any pain at this time. No other concerns at this time. Bed alarm on. Call light within reach.
--- NOTE | 2024-03-29 09:09 | NUR ---
0822 - Pt awake and alert, sitting up in chair for morning assessment and med pass. Pt complains of pain at this time, medicated with PRN oxycodone prior to PT/OT. Pt has no other concerns at this time. Chair alarm set. Call light within reach.
[2024-03-29 17:06] VITALS: BP 120/87; PULSE 92; TEMP 98.1
[2024-03-29 18:44] VITALS: BP_SYST 120
--- NOTE | 2024-03-29 20:30 | NUR ---
PT A&O X4. RESTING IN BED. SHIFT ASSESSMENT COMPLETE & HS MEDS GIVEN. PT RATING PAIN TO LEFT SHOULDER 03/31, TO EARLY FOR PRN PAIN MEDS, PT STATED PAIN IS TOLERABLE & WILL WAIT UNTIL NEXT ONE IS AVAILABLE. ASPEN COLLAR ON. STERI STRIPS TO RT WRIST CDI, NO DRAINAGE OR WARMTH BUT A LITTLE RED, BRACE IN PLACE & ARM ELEVATED ON PILLOW. PT DENIES OTHER NEEDS. CALL LIGHT IN REACH.
[2024-03-30 05:43] VITALS: BP 114/79; PULSE 66; TEMP 98.7
--- NOTE | 2024-03-30 05:44 | NUR ---
PT RESTING IN BED WITH UNLABORED RESP. CALL LIGHT IN REACH
[2024-03-30 06:45] VITALS: BP_SYST 114
--- NOTE | 2024-03-30 07:13 | NUR ---
Pt laying in bed, resting comfortably. No concerns at this time. Bed alarm set. Call light within reach.
--- NOTE | 2024-03-30 09:00 | NUR ---
0740 - Pt awake, sitting up in bed for morning assessment and med pass. This nurse assisted pt to bathroom, then chair. Pt complains of pain at this time, medicated with PRN oxycodone. No other concerns. Chair alarm set. Call light within reach.
--- NOTE | 2024-03-30 13:37 | NUR ---
The Interdisciplinary team discussed making the patient Independent in his room during Huddle. His current Bonilla Fall Score is low at 10 as he has not had any falls in last 3 months. His Tinetti score was low at 26. He is currently not using any device for mobility & self care & demonstrates good safety awareness. The team feels he is capable of being Independent in his room at this time as he is aware of his deficits/limitations & cognitively able to problem solve his situations.
--- NOTE | 2024-03-30 16:29 | NUR ---
ironworker apprentice spoke with Dona retail loan officer, whom reports patient and his report or early next week for discharge would be best for them. SW explained she would mention this preference in the team conference tomorrow morning.
[2024-03-30 17:24] VITALS: BP 117/81; PULSE 76; TEMP 97.4
[2024-03-30 18:46] VITALS: BP_SYST 117
--- NOTE | 2024-03-30 21:15 | NUR ---
PT A&O X4 LAYING IN BED. SHIFT ASSESSMENT COMPLETE & HS MEDS GIVEN. PT REPORTING PAIN TO LEFT SHOULDER & NECK 03/31, GAVE PRN OXYCODONE PER NOV. ASPEN COLLAR ON. BRACE TO RT WRIST & ELEVATED ON PILLOWS. PT NOW MOD I IN HIS ROOM. DENYING OTHER NEEDS. CALL LIGHT IN REACH
[2024-03-31 05:27] VITALS: BP 120/80; PULSE 81; TEMP 97.6
[2024-03-31 07:03] VITALS: BP_SYST 120
--- NOTE | 2024-03-31 09:00 | NUR ---
Pt doing well at this time. Did wake him during bedside shift report as well as when breakfast arrived. Pt was drowsy during conversation. He did rate his pain 7/10 in his left shoulder, PRN pain medication given. Pt refusing breakfast, states he never eats breakfast. No other needs at this time, call light within reach. Pt does have aspen collar on.
[2024-03-31] MEDS ORDERED: oxyCODONE 5 MG TAB PO PRN (12:00)
--- NOTE | 2024-03-31 13:39 | NUR ---
Pt having increased pain in L shoulder after physical therapy. Pt was premedicated with PRN oxycodone at approximately 1200, however, states that he is still at a 7/10 pain level. Pt states, "I'm still hurting, but I'm dealing with it." Pt appears relaxed at this time. No facial grimacing, guarding, or moaning noted. Physician notified.
--- NOTE | 2024-03-31 17:18 | NUR ---
coating line worker attended IPR team conference meeting. Patient has made improvement and would be able to discharge on Friday with OP PT and OT. SW and SW Student met with patient to confirm OP PT and OT preference. Patient reports he would like to start with [facility] location until he could get his insurance started then he would transfer to [facility]. Discharge plan: Home with OP PT/OT- [facility]
[2024-03-31 18:13] VITALS: BP 129/85; PULSE 88; TEMP 97.6
[2024-03-31 18:30] VITALS: BP_SYST 129
[2024-03-31] MEDS ORDERED: Pregabalin 150 MG CAP PO SCH (21:00)
--- NOTE | 2024-03-31 21:00 | NUR ---
PT A&O X4 LAYING IN BED. RATING PAIN TO LEFT SHOULDER & ARM 6/10, GAVE PRN OXYCODONE PER NOV. ASPEN COLLAR IN PLACE & BRACE TO RT WRIST. PT IS DENYING OTHER NEEDS. CALL LIGHT IN REACH
--- NOTE | 2024-04-01 05:52 | NUR ---
PT RESTING IN BED W/ UNLABORED RESP. STATES HIS PAIN IS 10/10 THIS MORNING IN HIS LEFT ARM, GAVE PRN OXYCODONE PER NOV. DENIES OTHER NEEDS. CALL LIGHT IN REACH
[2024-04-01 05:56] VITALS: BP 125/86; PULSE 83; TEMP 97.6
[2024-04-01 07:00] VITALS: BP_SYST 125
--- NOTE | 2024-04-01 07:15 | NUR ---
pt asleep upon entry, easily arousable. morning meds given and assessment complete. pt reports pain in right arm an 8/10 after pain medication given. dressing to right arm is cdi. c collar in place. pt refused breakfast this morning. no needs at this time. call light in reach.
--- NOTE | 2024-04-01 08:00 | NUR ---
A&O X4. VSS. C/O PAIN AND RECEIVED PRN PAIN MEDICATIONS ON PRIOR SHIFT. WILL REEVALUATE PAIN SINCE MORNING MEDICATIONS WERE ADMINISTERED. ASPEN COLLAR ON. UP INDEPENDENTLY IN ROOM TOLERATED. TOLERATING GENERAL DIET WELL. NO C/O N/V. PLANNING TO DC HOME TOMORROW.
[2024-04-01] MEDS ORDERED: Pregabalin 150 MG CAP PO SCH (14:00)
[2024-04-01 18:10] VITALS: BP 122/86; PULSE 72; TEMP 98.2
--- NOTE | 2024-04-01 19:18 | NUR ---
RECEIVED CHANGE OF SHIFT REPORT FROM DAY SHIFT NURSES, SLIME. PATIENT RESTING IN BED, CALL LIGHT WITHIN PATIENT'S REACH. PATIENT REPORTS HE IS GOING HOME TOMORROW. PATIENT WITH NO NEEDS REPORTED AT THIS TIME.
[2024-04-01 19:22] VITALS: BP_SYST 122
--- NOTE | 2024-04-01 20:00 | NUR ---
PATIENT UP IN ROOM INDEPENDENTLY. PATIENT REPORTS NO PROBLEMS WITH GETTING UP AND BACK INTO BED. CALL LIGHT WITHIN PATIENT'S REACH. PATIENT STILL REQUIRES ASSIST X1 WITH MEALS AND TAKING MEDS BUT ABLE TO HOLD DRINK IN CONTAINER/CUP WITH STRAW FOR DRINKING THIN LIQUIDS. DENIES ANY DISCOMFORT AT THIS TIME.
[2024-04-02 05:33] VITALS: BP 121/76; PULSE 76; TEMP 97.5
--- NOTE | 2024-04-02 05:38 | NUR ---
Patient reports he had BM "last night". Resting in bed, up in room independently with no reported problems or concerns. Call light within patient's reach.
--- NOTE | 2024-04-02 07:20 | NUR ---
CHANGE OF SHIFT REPORT GIVEN TO DAY SHIFT NURSEROSA.
[2024-04-02 07:28] VITALS: BP_SYST 121
--- NOTE | 2024-04-02 09:53 | NUR ---
PATIENT ALERT AND ORIENTED X4. VSS. PATIENT HERE FOR SPINAL CORD INJURY, RIGHT ARM FRACTURE. PATIENT REPORTS PAIN 8/10, PAIN MEDICATION ADMINISTERED. PATIENT ON ROOM AIR. AM MEDS ADMINISTERED. LIDOCAINE PATCH APPLIED TO LUE. NO FURTHER NEEDS. CALL LIGHT IN REACH.
[2024-04-02] MEDS ORDERED: oxyCODONE 5 MG TAB PO PRN (10:00)
[2024-04-02] MEDS ORDERED: LIORESAL 1010 MG/TAB PO (10:08)
[2024-04-02] MEDS ORDERED: MINIPRESS2 MG PO (10:08)
[2024-04-02] MEDS ORDERED: ASPIRIN 32325 MG/TAB PO (10:08)
[2024-04-02] MEDS ORDERED: PLAVIX 75MG TAB75 MG PO (10:08)
[2024-04-02] MEDS ORDERED: FLEXERIL 1010 MG/TAB PO (10:08)
[2024-04-02] MEDS ORDERED: BUSPAR10 MG PO (10:10)
[2024-04-02] MEDS ORDERED: CYMBALTA 60MG60 MG PO (10:10)
[2024-04-02] MEDS ORDERED: MIRALAX238G PO (10:11)
[2024-04-02] MEDS ORDERED: BLUE-EMU LIDOC1 EACH TP (10:11)
[2024-04-02] MEDS ORDERED: PROTONIX 40MG T40 MG PO (10:11)
[2024-04-02] MEDS ORDERED: KLONOPIN 1MG1 MG PO (10:12)
[2024-04-02] MEDS ORDERED: LYRICA 150MG C150 MG PO (10:12)
[2024-04-02] MEDS ORDERED: DAZIDOX10 MG PO (10:12)
--- NOTE | 2024-04-02 12:01 | NUR ---
DISCHARGE INSTRUCTIONS PROVIDED. PATIENT EDUCATION GIVEN. FOLLOW UP APPOINTMENTS DISCUSSED. MEDICATIONS REVIEWED. PATIENT AND DENY ANY QUESTIONS OR CONCERNS. PATIENT ESCORTED OUT VIA WHEELCHAIR WITH BELONGINGS.
--- NOTE | 2024-04-02 12:07 | NUR ---
shop worker contacted [email or web address] to schedule physical and occupational therapy. SW scheduled patient's PT for 04/05/24 at 9 am and OT 04/07/24 at 1030 AM. SHELTON notified patient's nurse whom reports she will put in the discharge instructions and notify him of these appointments. SHELTON faxed discharge orders and FAA to [email or web address]. Discharge plan: Home with OP PT and OT
--- NOTE | 2024-04-05 13:12 | NUR ---
Discharge QIM scores were reviewed by the team. Code of 6 chosen for lying to sitting was determined by team discussion to be the most usual performance for this patient during the discharge assessment period. Code of 6 chosen for walking 50 feet w/ 2 turns was determined by team discussion to be the most usual performance before interventions for this patient during the discharge assessment period. Code of 6 chosen for walk 10 feet on uneven surface was determined by team discussion to be the most usual performance for this patient during the discharge assessment period. Code of 6 chosen for 1 step was determined by team discussion to be the most usual performance for this patient during the discharge assessment period. Code of 6 chosen for 4 steps was determined by team discussion to be the most usual performance for this patient during the discharge assessment period.--Laura Poon, PD
== END 2024-04-02 12:02 | disposition home or self-care (01) | DRG 949 ==
LOC: MEDICAL 10:33
PROVIDERS: Internal Medicine; ADMIT Physical Medicine & Rehabilitation Sports Medicine
DX: S14.105D Unspecified injury at C5 level of cervical spinal cord, subsequent encounter (principal); N39.0 Urinary tract infection, site not specified; S52.501D Unspecified fracture of the lower end of right radius, subsequent encounter for closed fracture with routine healing; R26.89 Other abnormalities of gait and mobility; S12.4 Fracture of fifth cervical vertebra; G89.11 Acute pain due to trauma; K59.00 Constipation, unspecified; R20.0 Anesthesia of skin; R20.2 Paresthesia of skin; F41.1 Generalized anxiety disorder; F17.210 Nicotine dependence, cigarettes, uncomplicated; N28.9 Disorder of kidney and ureter, unspecified; F43.0 Acute stress reaction; Y92.410 Unspecified street and highway as the place of occurrence of the external cause; V29.888D Rider (driver) (passenger) of other motorcycle injured in other specified transport accidents, subsequent encounter; Z79.82 Long term (current) use of aspirin; Z79.899 Other long term (current) drug therapy; Z79.891 Long term (current) use of opiate analgesic; Z74.09 Other reduced mobility; Z98.1 Arthrodesis status; R11.2 Nausea with vomiting, unspecified; K21.9 Gastro-esophageal reflux disease without esophagitis
CPT/HCPCS: A9284; J1650; J3301; J7512